=== PATIENT | male | born 1995 | race Two or more races ===

== ENCOUNTER 2018-01-01 15:19 | Emergency (ER) | payer SELFPAY | END 2018-01-01 16:40 | disposition left against medical advice (07) | LOC: ER 15:19 | DX: R10.9 Unspecified abdominal pain (principal); Z53.21 Procedure and treatment not carried out due to patient leaving prior to being seen by health care provider ==

== ENCOUNTER 2018-05-24 12:56 | Emergency (ER) | payer SELFPAY ==
[~2018-05-24] VITALS: Ht 175.3 cm; Wt 99.8 kg
[2018-05-24 13:08] VITALS: BP 156/78
[2018-05-24 13:26] LABS: BILIRUBIN,URINE NEGATIVE (NEG); CLARITY,URINE CLEAR; COLOR,URINE YELLOW; NITRITE,URINE NEGATIVE (NEG); PH,URINE 5.5; PROTEIN,URINE NEGATIVE (NEG-TRACE); UROBILINOGEN,URINE 0.2 mg/dL (0.2 mg/dL)
--- NOTE | 2018-05-24 13:31 | PHYS DOC ---
Past Medical History Past Medical History: No Pertinent History Past Surgical History: No Surgical History Alcohol Use: Rarely Drug Use: Marijuana Adult General Chief Complaint Chief Complaint: SEXUALLY TRANSMITTED DISEASE HPI HPI Patient is a 23 year old medical presents to be treated for STDs. Patient states the girlfriend notified him she was diagnosed with chlamydia. Patient denies any symptoms. Review of Systems Review of Systems Constitutional: Denies fever or chills [] GI: Denies abdominal pain, nausea, vomiting, bloody stools or diarrhea [] : Reports STD concerns. Denies dysuria or hematuria [] Musculoskeletal: Denies back pain or joint pain [] Integument: Denies rash or skin lesions [] Neurologic: Denies headache, focal weakness or sensory changes [] All other systems were reviewed and found to be within normal limits, except as documented in this note. Current Medications Current Medications Current Medications Medications (Trade) Dose Ordered Sig/Paige Start Time Stop Time Status Last Admin Dose Admin Azithromycin (Zithromax) 1,000 mg 1X ONCE 05/24/18 13:15 05/24/18 13:16 UNV Ceftriaxone Sodium (Rocephin Im) 250 mg 1X ONCE 05/24/18 13:15 05/24/18 13:16 UNV Metronidazole (Flagyl) 2,000 mg 1X ONCE 05/24/18 13:15 05/24/18 13:16 UNV Physical Exam Physical Exam Constitutional: Well developed, well nourished, no acute distress, non-toxic appearance. [] Abdomen: Bowel sounds normal, soft, no tenderness, no masses, no pulsatile masses. [] Skin: Warm, dry, no erythema, no rash. [] Back: No tenderness, no CVA tenderness. [] Extremities: No tenderness, no cyanosis, no clubbing, ROM intact, no edema. [] Neurologic: Alert and oriented X 3, normal motor function, normal sensory function, no focal deficits noted. [] Psychologic: Affect normal, judgement normal, mood normal. [] Current Patient Data Vital Signs Vital Signs Date Time Temp Pulse Resp B/P (MAP) Pulse Ox O2 Delivery O2 Flow Rate FiO2 05/24/18 13:08 98.5 104 18 156/78 (104) 97 Room Air 98.5 EKG EKG [] Radiology/Procedures Radiology/Procedures [] Course & Med Decision Making Course & Med Decision Making Pertinent Labs and Imaging studies reviewed. (See chart for details) This is a 23-year-old male in the ED for STD concerns. Patient was treated prophylaxis. Education provided. Follow-up with PCP or Health Department as needed. Dragon Disclaimer Dragon Disclaimer This electronic medical record was generated, in whole or in part, using a voice recognition dictation system. Departure Departure Impression: Primary Impression: Concern about STD in male without diagnosis Disposition: HOME, SELF-CARE Condition: STABLE Referrals: NO PCP (PCP) Follow-up with the health department as needed Patient Instructions: Sexually Transmitted Disease, [id number] Additional Instructions: You were treated for sexually transmitted diseases. Do not have sex for one week. Use protection at all times, notify all your sex partners you were treated for STDs and ask them to seek treatment too. JAZMÍN YANCEY APRN May 24, 2018 13:31
[2018-05-24 13:34] LABS: BACTERIA,URINE FEW /HPF (0-FEW); RBC,URINE OCC /HPF (0-2); WBC,URINE OCC /HPF (0-4)
[2018-05-24] MEDS ORDERED: AZITHROMYCIN 250 MG TABLET. PO ONE (14:00)
[2018-05-24] MEDS ORDERED: metroNIDAZOLE 500 MG TABLET PO ONE (14:00)
[2018-05-24] MEDS ORDERED: cefTRIAXone IM 250 MG VIAL IM ONE (14:00)
== END 2018-05-24 14:14 | disposition home or self-care (01) ==
LOC: ER 12:56
DX: Z20.2 Contact with and (suspected) exposure to infections with a predominantly sexual mode of transmission (principal)
CPT/HCPCS: 81001; 87491; 87591; 96372; 99283; J0696; Q0144

== ENCOUNTER 2018-09-15 13:47 | Emergency (ER) | payer OTHER ==
[~2018-09-15] VITALS: Ht 172.7 cm; Wt 90.7 kg
[2018-09-15 15:05] VITALS: BP 170/107
[2018-09-15] MEDS ORDERED: SULF1TAB24 PO (15:39)
--- NOTE | 2018-09-15 15:40 | PHYS DOC ---
Past Medical History Past Medical History: No Pertinent History Past Surgical History: No Surgical History Additional Information: 1,2 smokes a day. Alcohol Use: Rarely Drug Use: Marijuana Adult General Chief Complaint Chief Complaint: INSECT BITE HPI HPI Patient is a 23 year old male who presents with lesion to his neck. Patient reports yesterday he started to notice some discomfort, with the feeling of a small knot forming to his posterior neck. Reports think he had a fever yesterday, but was not able to check his temperature. Reports he has had some increased discomfort, feels the area seems to be enlarging. Does report he had his hair cut 2 days ago, and has noticed the rash has continued to grow since that time. Does report he has been using Tylenol for discomfort which seemed to help a little bit. Review of Systems Review of Systems Constitutional: Denies fever or chills [] Eyes: Denies change in visual acuity, redness, or eye pain [] HENT: Denies nasal congestion or sore throat [] Respiratory: Denies cough or shortness of breath [] Cardiovascular: No additional information not addressed in HPI [] GI: Denies abdominal pain, nausea, vomiting, bloody stools or diarrhea [] : Denies dysuria or hematuria [] Musculoskeletal: Denies back pain or joint pain [] Integument: Reports rash to neck, denies other skin lesions [] Neurologic: Denies headache, focal weakness or sensory changes [] Endocrine: Denies polyuria or polydipsia [] All other systems were reviewed and found to be within normal limits, except as documented in this note. Allergies Allergies Allergies Coded Allergies Type Severity Reaction Last Updated Verified No Known Drug Allergies 05/24/18 No Physical Exam Physical Exam Constitutional: Well developed, well nourished, no acute distress, non-toxic appearance. [] HENT: Normocephalic, atraumatic, bilateral external ears normal, oropharynx moist, no oral exudates, nose normal. [] Eyes: PERRLA, EOMI, conjunctiva normal, no discharge. [] Neck: Normal range of motion, no tenderness, supple, no stridor. [] Cardiovascular:Heart rate regular rhythm, no murmur [] Lungs & Thorax: Bilateral breath sounds clear to auscultation [] Abdomen: Bowel sounds normal, soft, no tenderness, no masses, no pulsatile masses. [] Skin: Warm, dry, no erythema. Small erythematous patch to base of neck, just inferior and in hair-line. small firm nodule noted below lesion. Approx 1.5- 2cm diameter. [] Back: No tenderness, no CVA tenderness. [] Extremities: No tenderness, no cyanosis, no clubbing, ROM intact, no edema. [] Neurologic: Alert and oriented X 3, normal motor function, normal sensory function, no focal deficits noted. [] Psychologic: Affect normal, judgement normal, mood normal. [] Current Patient Data Vital Signs Vital Signs Date Time Temp Pulse Resp B/P (MAP) Pulse Ox O2 Delivery O2 Flow Rate FiO2 09/15/18 15:05 97.9 63 20 170/107 (128) 96 Room Air 97.9 EKG EKG [] Radiology/Procedures Radiology/Procedures [] Course & Med Decision Making Course & Med Decision Making Pertinent Labs and Imaging studies reviewed. (See chart for details) [] Dragon Disclaimer Dragon Disclaimer This electronic medical record was generated, in whole or in part, using a voice recognition dictation system. Departure Departure Impression: Primary Impression: Cellulitis and abscess of neck Disposition: HOME, SELF-CARE Condition: GOOD Referrals: NO PCP (PCP) Patient Instructions: Cellulitis, [id number] Additional Instructions: As we discussed, this is likely due to when they cut your hair, as this lesion started around that time. Make sure your clippers are cleaned if possible to prevent future infections like this. Take the antibiotic as prescribe until it's gone, even if the infection goes away You can take 1000 mg tylenol every 6 hours for the discomfort or 800 mg Ibuprofen every 8 hours for the discomfort. Scripts Sulfamethoxazole/Trimethoprim (BACTRIM DS TABLET) 1 Each Tablet 1 EACH PO BID for 7 Days, #14 TAB Prov: JORGE PALACIOS APRN 09/15/18 JORGE PALACIOS APRN Sep 15, 2018 15:40
== END 2018-09-15 15:56 | disposition home or self-care (01) ==
LOC: ER 13:47
DX: L02.11 Cutaneous abscess of neck (principal); L03.221 Cellulitis of neck; F17.200 Nicotine dependence, unspecified, uncomplicated
CPT/HCPCS: 99283